=== PATIENT | female | born 1985 | race Caucasian/White ===

== ENCOUNTER 2017-01-03 10:41 | Emergency (ER) | payer MEDICAID, OTHER ==
[~2017-01-03] VITALS: Ht 157.5 cm; Wt 62.5 kg
[2017-01-03 10:44] VITALS: Ht 157.5 cm; Wt 62.5 kg
[2017-01-03] MEDS ORDERED: morphine 4 MG/ML VIAL IV STA (13:04)
[2017-01-03] MEDS ORDERED: ONDANSETRON 4 MG INJ IV STA (13:04)
--- NOTE | 2017-01-03 13:06 | ERD ---
ER Documentation Chief Complaint Date/Time DATE: 01/03/17 TIME: 13:05 Chief Complaint LOWER ABD PAIN X2 DAYS HPI This is a 31-year-old female presents the emergency department planing of lower abdominal pain and left-sided back pain for the past 2 days. States she is taking ibuprofen for the pain. Denies any fevers or chills, nausea or vomiting ROS All systems reviewed and are negative except as per history of present illness. Medications Home Meds Active Scripts Acetaminophen* (Tylophen*) 500 Mg Capsule, 1 CAP PO Q6H Y for PAIN AND OR ELEVATED TEMP, #30 CAP Prov:SUZE HOUES PA-C 01/03/17 Cephalexin* (Keflex*) 500 Mg Capsule, 500 MG PO QID for 7 Days, CAP Prov:SUZE HOUSE PA-C 01/03/17 Naproxen* (Naprosyn*) 500 Mg Tablet, 500 MG PO BID Y for PAIN AND/OR INFLAMMATION, #30 TAB Prov:SUZE HOUSE PA-C 01/03/17 Allergies Allergies: Coded Allergies: No Known Allergy (Unverified , 01/03/17) PMhx/Soc Medical and Surgical Hx: pt denies Medical Hx, pt denies Surgical Hx Physical Exam Vitals Vital Signs Date Time Temp Pulse Resp B/P Pulse Ox O2 Delivery O2 Flow Rate FiO2 01/03/17 10:44 98.4 68 18 123/68 99 Physical Exam Const: NAD Head: Atraumatic Eyes: Normal Conjunctiva ENT: Normal External Ears, Nose and Mouth. Neck: Full range of motion..~ No meningismus. Resp: Clear to auscultation bilaterally Cardio: Regular rate and rhythm, no murmurs Abd: Soft, left lower quadrant tenderness, non distended. Normal bowel sounds. No right upper quadrant pain. No tenderness at McBurney's Skin: No petechiae or rashes Back: No midline tenderness. left sided flank pain. No CVA tenderness Ext: No cyanosis, or edema Neur: Awake and alert Psych: Normal Mood and Affect Result Diagram: 01/03/17 1331 01/03/17 1331 Results 24 hrs Laboratory Tests Test 01/03/17 13:18 01/03/17 13:31 Urine Color YELLOW Urine Clarity SLIGHTLY CLOUDY Urine pH 6.0 Urine Specific [place] 1.024 Urine Ketones NEGATIVEmg/dL Urine Nitrite NEGATIVEmg/dL Urine Bilirubin NEGATIVEmg/dL Urine Urobilinogen NEGATIVEmg/dL Urine Leukocyte Esterase 1+Shirley/ul Urine Microscopic RBC 1/HPF Urine Microscopic WBC 4/HPF Urine Squamous Epithelial Cells MODERATE/HPF Urine Mucus FEW/HPF Urine Hemoglobin NEGATIVEmg/dL Urine Glucose NEGATIVEmg/dL Urine Total Protein NEGATIVEmg/dl White Blood Count 9.710^3/ul Red Blood Count 4.0810^6/ul Hemoglobin 12.3g/dl Hematocrit 36.4% Mean Corpuscular Volume 89.2fl Mean Corpuscular Hemoglobin 30.1pg Mean Corpuscular Hemoglobin Concent 33.8g/dl Red Cell Distribution Width 12.5% Platelet Count 34566^3/UL Mean Platelet Volume 9.0fl Neutrophils % 59.2% Lymphocytes % 28.5% Monocytes % 6.2% Eosinophils % 5.5% Basophils % 0.4% Nucleated Red Blood Cells % 0.0/100WBC Neutrophils # (Manual) 5.710^3/ul Lymphocytes # 2.810^3/ul Monocytes # 0.610^3/ul Eosinophils # 0.510^3/ul Basophils # 0.010^3/ul Nucleated Red Blood Cells # 0.010^3/ul Sodium Level 144mmol/L Potassium Level 3.4mmol/L Chloride Level 101mmol/L Carbon Dioxide Level 27mmol/L Anion Gap 19 Blood Urea Nitrogen 9mg/dl Creatinine 0.65mg/dl Glucose Level 84mg/dl Calcium Level 9.0mg/dl Total Bilirubin 0.2mg/dl Direct Bilirubin 0.00mg/dl Indirect Bilirubin 0.2mg/dl Aspartate Amino Transf (AST/SGOT) 28IU/L Alanine Aminotransferase (ALT/SGPT) 36IU/L Alkaline Phosphatase 65IU/L Total Protein 7.8g/dl Albumin 4.3g/dl Globulin 3.50g/dl Albumin/Globulin Ratio 1.22 Lipase 95U/L Current Medications Medications (Trade) Dose Ordered Sig/Mikey Route PRN Reason Start Time Stop Time Status Last Admin Dose Admin Morphine Sulfate (morphine) 4 mg ONCE STAT IV 01/03/17 13:04 01/03/17 13:05 DC 01/03/17 13:25 Ondansetron HCl (Zofran Inj) 4 mg ONCE STAT IV 01/03/17 13:04 01/03/17 13:05 DC 01/03/17 13:23 DIAGNOSTIC IMAGING REPORT Patient: LUBA RENEE : 1985 Age: 31 Sex: F [id number] DOS: 01/03/17 1304 Ordering MD: SUZE HOUSE PA-C Location: [facility] Room/Bed: PROCEDURE: CT Abdomen and Pelvis without contrast. CLINICAL INDICATION: Abdominal pain. TECHNIQUE: Routine abdominopelvic CT was performed without intravenous contrast and reformatted in the axial, coronal, sagittal planes. Radiation dose: CTDIvol (mGy) = 8.5; total DLP mGy-cm = 479. One or more of the following radiation dose techniques were used: -Automated exposure control. -Adjust of the mA and/or kV according to patient size. -Use of iterative reconstruction technique. COMPARISON: None. FINDINGS: There are diffuse steatotic changes evident within the liver. Gallbladder is surgically absent without biliary dilatation. Unenhanced images of the adrenal glands, gallbladder, spleen, and pancreas demonstrate no gross abnormality. No abnormal bowel wall thickening or dilatation. Appendix is within normal limits. An intrauterine device is in place. No adnexal cyst or mass. No free fluid or fluid collection. Lung bases are clear. No concerning bone lesions. IMPRESSION: No abdominopelvic mass, lymphadenopathy, or focal acute inflammatory process. No hydronephrosis or nephrolithiasis. The appendix is normal. Intrauterine device is in place in satisfactory position. Hepatic steatosis. RPTAT: EE .Fan Mejía MD, MD Date Time Electronically viewed and signed by .Fan Mejía MD, MD on 01/03/2017 14:35 .C/ CC: SUZE HOUSE PA-C Procedures/[facility] This is a 31-year-old female presents the emergency department today complaining of significant left lower pain for the past 2 days. On exam patient has a significant amount of left lower quadrant pain as well as flank pain and therefore did obtain laboratory work as well as imaging Workup shows no elevated white blood cell count. She is not anemic. Platelets are within normal limits. Electro lites are within normal limits. Glucose within normal limits. Lipase within normal limits per UA shows 1+ leukocyte esterase. The abdomen pelvis noncontrast no abdominal pelvic mass, lymphadenopathy or focal acute inflammatory process. There is no hydronephrosis or nephrolithiasis. Appendix is normal. An IUD is in place. There is no adnexal cyst or mass. There is no free fluid or fluid collection. There is hepatic steatosis As of this time is consistent with left lower quadrant and back pain most likely caused by urinary tract infection. Low for acute surgical abdomen. She was given morphine, Zofran here in the emergency department and is improved. Patient given a prescription for Tylenol, naprosyn and Keflex. At this time the patient is stable for discharge and outpatient management. Patient should follow up with their PCP in the next 1-2 days. They may return to the emergency department sooner for any persistent or worsening of symptoms. Patient understood and agreed with the plan. Departure Diagnosis: Primary Impression: Abdominal pain Abdominal location: left lower quadrant Qualified Code: R10.32 - Left lower quadrant pain Additional Impression: UTI (urinary tract infection) Urinary tract infection type: site unspecified Hematuria presence: without hematuria Qualified Code: N39.0 - Urinary tract infection without hematuria, site unspecified Condition: SUZE Sharma PA-C Jan 03, 2017 13:06
[2017-01-03 13:52] LABS: BASOPHILS % 0.4 % (0.0-2.0); EOSINOPHILS # 0.5 10^3/ul (0.0-0.5); EOSINOPHILS % 5.5 % (0.0-7.0); HEMATOCRIT 36.4 % (37.0-47.0); HEMOGLOBIN 12.3 g/dl (12.0-16.0); LYMPHOCYTES # 2.8 10^3/ul (0.8-2.9); LYMPHOCYTES % 28.5 % (15.0-51.0); MEAN CORPUSCULAR HEMOGLOBIN 30.1 pg (29.0-33.0); MEAN CORPUSCULAR HGB CONC 33.8 g/dl (32.0-37.0); MEAN CORPUSCULAR VOLUME 89.2 fl (82.0-101.0); MONOCYTE # 0.6 10^3/ul (0.3-0.9); MONOCYTES % 6.2 % (0.0-11.0); NEUTROPHILS % 59.2 % (39.0-77.0); PLATELET COUNT 309 10^3/UL (140-415); RED BLOOD COUNT 4.08 10^6/ul (4.20-5.40); RED CELL DISTRIBUTION WIDTH 12.5 % (11.5-14.5); WHITE BLOOD COUNT 9.7 10^3/ul (4.8-10.8)
[2017-01-03 14:09] LABS: ADD UMIC YES; UR ASCORBIC ACID NEGATIVE (NEGATIVE); UR BILIRUBIN (Dip) NEGATIVE (NEGATIVE); UR BLOOD (Dip) NEGATIVE (NEGATIVE); UR CLARITY SLIGHTLY CLOUDY (CLEAR); UR COLOR YELLOW (YELLOW); UR GLUCOSE (Dip) NEGATIVE (NEGATIVE); UR KETONES (Dip) NEGATIVE (NEGATIVE); UR LEUKOCYTE ESTERASE (Dip) 1+ Leu/ul (NEGATIVE); UR MUCUS FEW /HPF (NONE SEEN); UR NITRITE (Dip) NEGATIVE (NEGATIVE); UR RBC 1 /HPF (0-5); UR SPECIFIC GRAVITY (Dip) 1.024 (1.003-1.030); UR SQUAMOUS EPITHELIAL CELL MODERATE /HPF (FEW); UR TOTAL PROTEIN (Dip) NEGATIVE (NEGATIVE); UR UROBILINOGEN (Dip) NEGATIVE (NEGATIVE)
[2017-01-03 14:14] LABS: ALBUMIN 4.3 g/dl (3.3-4.9); ALBUMIN/GLOBULIN RATIO 1.22; BILIRUBIN,INDIRECT 0.2 mg/dl (0-1.1); BILIRUBIN,TOTAL 0.2 mg/dl (0.2-1.3); CREATININE 0.65 mg/dl (0.44-1.00); POTASSIUM 3.4 mmol/L (3.5-5.1); TOTAL PROTEIN 7.8 g/dl (6.1-8.1)
--- NOTE | 2017-01-03 14:30 | RADRPT ---
PROCEDURE: CT Abdomen and Pelvis without contrast. CLINICAL INDICATION: Abdominal pain. TECHNIQUE: Routine abdominopelvic CT was performed without intravenous contrast and reformatted in the axial, coronal, sagittal planes. Radiation dose: CTDIvol (mGy) = 8.5; total DLP mGy-cm = 479. One or more of the following radiation dose techniques were used: -Automated exposure control. -Adjust of the mA and/or kV according to patient size. -Use of iterative reconstruction technique. COMPARISON: None. FINDINGS: There are diffuse steatotic changes evident within the liver. Gallbladder is surgically absent with out biliary dilatation. Unenhanced images of the adrenal glands, gallbladder, spleen, and pancreas demonstrate no gross abno rmality. No abnormal bowel wall thickening or dilatation. Appendix is within normal limits. An intrauterine device is in place. No adnexal cyst or mass. No free fluid or fluid collection. Lung bases are clear. No concerning bone lesions. IMPRESSION: No abdominopelvic mass, lymphadenopathy, or focal acute inflammatory process. No hydronephrosis or nephrolithiasis. The appendix is normal. Intrauterine device is in place in satisfactory position. Hepatic steatosis. RPTAT: EE .Fan Mejía MD, Date Time Electronically viewed and signed by .Fan Mejía MD, on 01/03/2017 14:35 .C/
[2017-01-03] MEDS ORDERED: CEPH-443 PO (15:11)
[2017-01-03] MEDS ORDERED: NAPR-260 PO (15:11)
[2017-01-03] MEDS ORDERED: ACET500C5 PO (15:12)
[2017-01-03 15:49] VITALS: BP 132/87; PULSE 86; RESP 20; TEMP 98.3
== END 2017-01-03 15:50 | disposition home or self-care (01) ==
LOC: FTE 10:41
DX: R10.32 Left lower quadrant pain (principal); N39.0 Urinary tract infection, site not specified
CPT/HCPCS: 36415; 74176; 80053; 81001; 83690; 85025; 96374; 96375; J2270; J2405; Z7502